=== PATIENT | female | born 1950 | race Caucasian/White ===

== ENCOUNTER 2016-09-23 10:59 | Inpatient (IN) | payer OTHER ==
[~2016-09-23] VITALS: Ht 152.4 cm; Wt 77.2 kg
[~2016-09-23 10:59] MED LIST: AMLODIPINE BESYL5 MG PO; CEFUROXIME500 MG PO; DESYREL100 MG PO; DONEPEZIL HCL10 MG PO; FAMOTIDINE20 MG PO; KLONOPIN0.5 M1 PO; LEXAPRO20 MG PO; LIPITOR40 MG PO; LISINOPRIL20 MG PO; METFORMIN HCL500 M4 PO; METOPROLOL SUCC25 MG PO; NICOTINE PATCH1 EAC1 TD; POLYETHYLENE GLYCOL; PREDNISONE10 MG PO; PROPRANOLOL HCL20 MG PO; SYMBICORT60 INHALAT IH; VENTOLIN HFA18 GM IH; VITAMIN D-32000 UNI2 PO; ZESTRIL20 MG PO; ZOLOFT25 MG PO
[2016-09-23 12:04] LABS: HEMATOCRIT 30.2 % (36.0-46.0); MCH 26.4 PG (29.0-34.0); MCHC 33.4 G/DL (30.0-36.0); MCV 78.9 FL (83-99); PLATELET COUNT 388 K/uL (156-360); RBC DIS.WIDTH-CV 13.9 % (11.8-14.6); RBC DIS.WIDTH-SD 39.6 % (39-53); RED BLOOD COUNT 3.83 M/uL (3.80-5.20)
[2016-09-23 12:05] LABS: WHITE BLOOD COUNT 11.5 K/uL (4.1-10.2)
[2016-09-23 12:13] LABS: CHLORIDE 87 mEq/L (99-109); POTASSIUM 4.7 mEq/L (3.7-5.4)
[2016-09-23 12:14] LABS: GLUCOSE 117 mg/dL (70-99)
[2016-09-23 12:16] LABS: ANION GAP 11 MEQ/L (2-14)
[2016-09-23 12:18] LABS: GFR ESTIMATE (CALCULATED) > 59 mL/min/
[2016-09-23 12:19] LABS: SODIUM 127 mEq/L (136-147); UREA NITROGEN (BUN) 10 mg/dL (9-23)
[2016-09-23] MEDS ORDERED: METOPROLOL SUCC25 MG PO (14:46)
[2016-09-23] MEDS ORDERED: MIRALAX17 GM PO (14:46)
[2016-09-23] MEDS ORDERED: ALBUTEROL S2 MG/5 ML PO (14:47)
[2016-09-23 14:55] LABS: TOTAL BILIRUBIN 0.3 mg/dL (0.0-1.0)
[2016-09-23 14:56] LABS: ALKALINE PHOSPHATASE 98 IU/L (3-129)
[2016-09-23 14:59] LABS: DIRECT BILIRUBIN 0.2 mg/dL (0.0-0.3)
[2016-09-23 15:00] LABS: LIPASE 26 U/L (1.0-51.0)
[2016-09-23 15:06] LABS: TROP-I INTERPRETATION NEGATIVE; TROPONIN-I < 0.01 ng/mL (0.0-0.30)
[2016-09-23 19:10] VITALS: BP 158/72
[2016-09-23 20:49] LABS: UR CREATININE CONCENTRATION 11.3 MG/DL
[2016-09-23 23:14] VITALS: BP 135/65
[2016-09-24] VITALS (7 sets, daily range): BP systolic 114–152; BP diastolic 66–79
[2016-09-24 07:06] LABS: HEMATOCRIT 30.5 % (36.0-46.0); MCHC 33.1 G/DL (30.0-36.0); MCV 78.6 FL (83-99); MEAN PLAT.VOLUME 7.8 uM^3 (9.5-12.4); PLATELET COUNT 487 K/uL (156-360); RBC DIS.WIDTH-CV 13.8 % (11.8-14.6); RBC DIS.WIDTH-SD 39.5 % (39-53); RED BLOOD COUNT 3.88 M/uL (3.80-5.20)
[2016-09-24 07:12] LABS: WHITE BLOOD COUNT 17.3 K/uL (4.1-10.2)
[2016-09-24 07:17] LABS: ANION GAP 9 MEQ/L (2-14); CHLORIDE 85 MEQ/L (99-109); GFR ESTIMATE (CALCULATED) > 59 mL/min/; GLUCOSE 149 mg/dL (70-99); POTASSIUM 5.5 MEQ/L (3.7-5.4); SAMPLE HEMOLYSIS CHECK 0; SAMPLE ICTERIC CHECK 0; SAMPLE LIPEMIA CHECK 0; SODIUM 123 MEQ/L (136-147); UREA NITROGEN (BUN) 8 mg/dL (9-23)
[2016-09-24 12:04] LABS: POINT-OF-CARE METER ID UU14162508
[2016-09-24 17:15] LABS: POINT-OF-CARE METER ID UU14162508
[2016-09-24 19:24] LABS: ANION GAP 9 MEQ/L (2-14); CHLORIDE 85 MEQ/L (99-109); GFR ESTIMATE (CALCULATED) > 59 mL/min/; GLUCOSE 165 mg/dL (70-99); SAMPLE HEMOLYSIS CHECK 0; SAMPLE ICTERIC CHECK 0; SAMPLE LIPEMIA CHECK 0; SODIUM 121 MEQ/L (136-147); UREA NITROGEN (BUN) 11 mg/dL (9-23)
[2016-09-24 19:29] LABS: POTASSIUM 3.8 MEQ/L (3.7-5.4)
[2016-09-24 21:14] LABS: INFLUENZA A VIRAL ANTIGEN NEGATIVE; INFLUENZA B VIRAL ANTIGEN NEGATIVE
[2016-09-24 21:33] LABS: POINT-OF-CARE METER ID UU14162508
[2016-09-25 03:26] VITALS: BP 128/62
[2016-09-25 07:20] VITALS: BP 145/73
[2016-09-25 07:52] LABS: ALKALINE PHOSPHATASE 104 IU/L (3-129); ANION GAP 6 MEQ/L (2-14); CHLORIDE 87 MEQ/L (99-109); GFR ESTIMATE (CALCULATED) > 59 mL/min/; GLUCOSE 134 mg/dL (70-99); MAGNESIUM 1.6 mg/dl (1.3-2.7); POTASSIUM 4.2 MEQ/L (3.7-5.4); SAMPLE HEMOLYSIS CHECK 0; SAMPLE ICTERIC CHECK 0; SAMPLE LIPEMIA CHECK 0; SODIUM 125 MEQ/L (136-147); TOTAL BILIRUBIN 0.3 MG/DL (0.0-1.0); UREA NITROGEN (BUN) 10 mg/dL (9-23); URIC ACID 2.5 mg/dL (3.1-9.2)
[2016-09-25 11:28] LABS: HPCA INDEX 0.08
[2016-09-25 11:30] VITALS: BP 151/72
[2016-09-25 16:27] LABS: POINT-OF-CARE METER ID UU14162508
[2016-09-25 16:49] VITALS: BP 172/84
[2016-09-25 20:00] VITALS: BP 169/74
[2016-09-25 21:23] LABS: POINT-OF-CARE METER ID UU14162508
[2016-09-26] VITALS (7 sets, daily range): BP systolic 146–164; BP diastolic 69–90
[2016-09-26 10:31] LABS: ANION GAP 8 MEQ/L (2-14); CHLORIDE 84 MEQ/L (99-109); GFR ESTIMATE (CALCULATED) > 59 mL/min/; GLUCOSE 161 mg/dL (70-99); MAGNESIUM 1.5 mg/dl (1.3-2.7); POTASSIUM 4.3 MEQ/L (3.7-5.4); SAMPLE HEMOLYSIS CHECK 0; SAMPLE ICTERIC CHECK 0; SAMPLE LIPEMIA CHECK 0; SODIUM 124 MEQ/L (136-147); UREA NITROGEN (BUN) 17 mg/dL (9-23)
[2016-09-26 10:45] LABS: HEMATOCRIT 32.9 % (36.0-46.0); MCH 25.8 PG (29.0-34.0); MCHC 32.2 G/DL (30.0-36.0); MEAN PLAT.VOLUME 7.7 uM^3 (9.5-12.4); PLATELET COUNT 577 K/uL (156-360); RBC DIS.WIDTH-SD 41.1 % (39-53); RED BLOOD COUNT 4.11 M/uL (3.80-5.20)
[2016-09-26 10:47] LABS: WHITE BLOOD COUNT 28.9 K/uL (4.1-10.2)
[2016-09-27 03:36] VITALS: BP 138/63
[2016-09-27 06:53] LABS: HEMATOCRIT 34.6 % (36.0-46.0); MCH 26.1 PG (29.0-34.0); MCHC 32.9 G/DL (30.0-36.0); MCV 79.4 FL (83-99); MEAN PLAT.VOLUME 7.4 uM^3 (9.5-12.4); PLATELET COUNT 552 K/uL (156-360); RBC DIS.WIDTH-CV 13.9 % (11.8-14.6); RBC DIS.WIDTH-SD 40.1 % (39-53); RED BLOOD COUNT 4.36 M/uL (3.80-5.20); WHITE BLOOD COUNT 28.5 K/uL (4.1-10.2)
[2016-09-27 07:23] LABS: ANION GAP 9 MEQ/L (2-14); CHLORIDE 84 MEQ/L (99-109); GFR ESTIMATE (CALCULATED) > 59 mL/min/; GLUCOSE 136 mg/dL (70-99); MAGNESIUM 1.6 mg/dl (1.3-2.7); POTASSIUM 4.7 MEQ/L (3.7-5.4); SAMPLE HEMOLYSIS CHECK 0; SAMPLE ICTERIC CHECK 0; SAMPLE LIPEMIA CHECK 0; SODIUM 123 MEQ/L (136-147); UREA NITROGEN (BUN) 17 mg/dL (9-23)
[2016-09-27 08:00] VITALS: BP 158/87
[2016-09-27 12:00] VITALS: BP 137/69
[2016-09-27 12:26] LABS: POINT-OF-CARE METER ID UU14162508
[2016-09-27 16:00] VITALS: BP 149/70
[2016-09-27 16:32] LABS: POINT-OF-CARE METER ID UU14162508
[2016-09-27 19:55] VITALS: BP 147/71
[2016-09-27 23:45] VITALS: BP 145/65
[2016-09-28 04:15] VITALS: BP 147/70
[2016-09-28 08:28] VITALS: BP 159/78
[2016-09-28 09:06] LABS: ANION GAP 9 MEQ/L (2-14); CHLORIDE 89 MEQ/L (99-109); GFR ESTIMATE (CALCULATED) > 59 mL/min/; GLUCOSE 126 mg/dL (70-99); POTASSIUM 5.4 MEQ/L (3.7-5.4); SAMPLE HEMOLYSIS CHECK 0; SAMPLE ICTERIC CHECK 0; SAMPLE LIPEMIA CHECK 0; UREA NITROGEN (BUN) 24 mg/dL (9-23)
[2016-09-28 09:07] LABS: SODIUM 131 MEQ/L (136-147)
[2016-09-28 10:34] LABS: MEAN PLAT.VOLUME 7.7 uM^3 (9.5-12.4); PLATELET COUNT 666 K/uL (156-360)
[2016-09-28 10:41] LABS: HEMATOCRIT 35.5 % (36.0-46.0); MCH 26.1 PG (29.0-34.0); MCV 79.2 FL (83-99); NRBC (%) 0.1 /100 WBC (0-0); RBC DIS.WIDTH-CV 14.2 % (11.8-14.6); RBC DIS.WIDTH-SD 40.9 % (39-53); RED BLOOD COUNT 4.48 M/uL (3.80-5.20); WHITE BLOOD COUNT 31.1 K/uL (4.1-10.2)
[2016-09-28 11:53] LABS: POINT-OF-CARE METER ID UU14162508
[2016-09-28 12:04] VITALS: BP 166/71
[2016-09-28 16:37] VITALS: BP 147/72
[2016-09-28 17:25] LABS: POINT-OF-CARE METER ID UU14162508
[2016-09-28 19:32] VITALS: BP 160/70
[2016-09-28 23:58] VITALS: BP 159/72
[2016-09-29 03:41] VITALS: BP 158/76
[2016-09-29 06:54] LABS: POINT-OF-CARE METER ID UU14162508
[2016-09-29 07:12] LABS: PLATELET COUNT 570 K/uL (156-360)
[2016-09-29 07:34] LABS: HEMATOCRIT 32.2 % (36.0-46.0); MCH 26.7 PG (29.0-34.0); MCHC 33.2 G/DL (30.0-36.0); MCV 80.3 FL (83-99); NRBC (%) 0.1 /100 WBC (0-0); RBC DIS.WIDTH-CV 14.6 % (11.8-14.6); RBC DIS.WIDTH-SD 41.9 % (39-53); RED BLOOD COUNT 4.01 M/uL (3.80-5.20)
[2016-09-29 07:38] LABS: ALKALINE PHOSPHATASE 78 IU/L (3-129); ANION GAP 8 MEQ/L (2-14); CHLORIDE 92 MEQ/L (99-109); GFR ESTIMATE (CALCULATED) > 59 mL/min/; SAMPLE HEMOLYSIS CHECK 0; SAMPLE ICTERIC CHECK 0; SAMPLE LIPEMIA CHECK 0; SODIUM 130 MEQ/L (136-147); TOTAL BILIRUBIN 0.3 MG/DL (0.0-1.0); UREA NITROGEN (BUN) 25 mg/dL (9-23)
[2016-09-29 07:40] LABS: GLUCOSE 88 mg/dL (70-99); POTASSIUM 4.3 MEQ/L (3.7-5.4)
[2016-09-29 07:50] LABS: WHITE BLOOD COUNT 32.7 K/uL (4.1-10.2)
[2016-09-29 08:00] VITALS: BP 148/76
[2016-09-29 08:54] LABS: ABS NEUTROPHIL COUNT 27.7; ANISOCYTOSIS 1+; BAND NEUTROPHILS 0.8 % (0-8.0); BURR CELLS 1+; EOSINOPHIL ABS CT 0; HYPERSEGMENTATION 3+; INSTRUMENT ABS NEUTROPHIL CT 26.8 K/uL; LYMPHOCYTES 5.1 % (15.0-45.0); METAMYELOCYTES 1.7 %; MICROCYTOSIS 1+; PLAT.SUFFICIENCY INCREASED; POIKILOCYTOSIS 1+; SMUDGE CELLS 1.7; SPHEROCYTES 1+
[2016-09-29 12:22] VITALS: BP 154/81
[2016-09-29] MEDS ORDERED: SODIUM CHLORIDE1 G1 PO (12:45)
[2016-09-29] MEDS ORDERED: SPIRIVA RESPIMAT4 GM IH (12:45)
[2016-09-29] MEDS ORDERED: FUROSEMIDE20 MG PO (12:45)
[2016-09-29] MEDS ORDERED: PREDNISONE10 MG PO (12:45)
[2016-09-29 14:59] VITALS: BP 155/73
== END 2016-09-29 19:08 | disposition home or self-care (01) | DRG 189 ==
LOC: EME 10:59 → 2EAST 14:52 → EDOF 14:52 → 2EAST 15:55
PROVIDERS: Hospitalist; Internal Medicine; Internal Medicine Infectious Disease; Internal Medicine Nephrology
DX: J96.21 Acute and chronic respiratory failure with hypoxia (principal); J44.0 Chronic obstructive pulmonary disease with (acute) lower respiratory infection; J18.9 Pneumonia, unspecified organism; J44.1 Chronic obstructive pulmonary disease with (acute) exacerbation; Z99.81 Dependence on supplemental oxygen; E22.2 Syndrome of inappropriate secretion of antidiuretic hormone; I47.2 Ventricular tachycardia; E11.9 Type 2 diabetes mellitus without complications; R94.6 Abnormal results of thyroid function studies; D64.9 Anemia, unspecified; I10 Essential (primary) hypertension; S00.83XA Contusion of other part of head, initial encounter; W01.0XXA Fall on same level from slipping, tripping and stumbling without subsequent striking against object, initial encounter; D72.828 Other elevated white blood cell count; T38.0X5A Adverse effect of glucocorticoids and synthetic analogues, initial encounter; J32.4 Chronic pansinusitis; F32.9 Major depressive disorder, single episode, unspecified; F41.9 Anxiety disorder, unspecified; K21.9 Gastro-esophageal reflux disease without esophagitis; E78.5 Hyperlipidemia, unspecified; E87.5 Hyperkalemia; Z79.84 Long term (current) use of oral hypoglycemic drugs; Z87.891 Personal history of nicotine dependence
CPT/HCPCS: 36415; 70450; 70486; 71010; 71020; 71250; 74176; 80048; 80048 91; 80053; 80076; 80400; 81003; 82436; 82533 91; 82570; 82948; 83540; 83605; 83690; 83735; 83930; 83935; 84133; 84156; 84300; 84439; 84443; 84466; 84484; 84550; 85025; 85027; 86803; 87040; 87070; 87205; 87449; 87502; 93005; 94640; 94640 76; 94667; 94799; 99202; 99281; 99285; J0834; J1100; J1650; J1815; J1956; J2920; J3475; J7030; J7512